=== PATIENT | female | born 1990 | race Two or more races ===

== ENCOUNTER 2022-07-06 10:37 | Emergency (ER) | payer OTHER ==
[~2022-07-06] VITALS: Ht 154.9 cm; Wt 74.8 kg
== END 2022-07-06 18:07 | disposition home or self-care (01) ==
LOC: ER 10:37
DX: B34.9 Viral infection, unspecified (principal); A49.3 Mycoplasma infection, unspecified site; Z20.822 Contact with and (suspected) exposure to COVID-19